=== PATIENT | male | born 1970 | race Caucasian/White ===

== ENCOUNTER 2020-12-11 10:07 | Emergency (ER) | payer MEDICAID ==
[~2020-12-11] VITALS: Ht 167.6 cm; Wt 97.7 kg
[2020-12-11 10:15] VITALS: Ht 167.6 cm; Wt 97.7 kg
[2020-12-11] MEDS ORDERED: METFORMIN (10:16)
[2020-12-11] MEDS ORDERED: BLOOD PRESSURE MED (10:16)
[2020-12-11] MEDS ORDERED: CHOLESTEROL MED (10:16)
[2020-12-11 11:06] LABS: HEMATOCRIT 53.3 % (42.0-54.0); MCH 30.6 pg (26.0-34.0); MCHC 33.8 g/dL (31.0-37.0); MCV 90.6 fL (80.0-100.0); MEAN PLATELET VOLUME 8.2 fL (7.4-10.4); PLATELET COUNT 327 10x3/uL (130-400); RBC 5.88 10x6/uL (4.20-6.10); RDW 13.7 % (11.5-14.5)
[2020-12-11 11:09] VITALS: BP 139/82
[2020-12-11 11:39] LABS: INR 1.11 (0.85-1.17); PROTIME 13.3 SECONDS (11.6-15.0)
[2020-12-11 11:47] LABS: CALC OSMOLALITY 274 mosm/kg (275-300); CALCIUM 8.9 mg/dL (8.5-10.1); CARBON DIOXIDE 23.8 mmol/L (21.0-32.0); CHLORIDE - SERUM 97 mmol/L (98-107); CREATININE - SERUM 0.8 mg/dL (0.6-1.3); GLUCOSE 365 mg/dL (74-106); POTASSIUM - SERUM 4.2 mmol/L (3.5-5.1); SODIUM 129 mmol/L (136-145); UREA NITROGEN 15 mg/dL (7-18); eGFR NON AFRICAN AMERICAN > 90 mL/min (90-120)
[2020-12-11 11:49] LABS: CHOLESTEROL, TOTAL 190 mg/dL (0-200); HDL CHOLESTEROL 27 mg/dL (32-96)
[2020-12-11 11:59] LABS: TRIGLYCERIDE 585 mg/dL (30-200)
[2020-12-11 12:03] LABS: ALBUMIN 3.4 g/dL (3.4-5.0); ALKALINE PHOSPHATASE 104 U/L (30-120); ALT (SGPT) 48 U/L (10-68); BILIRUBIN - TOTAL 0.38 mg/dL (0.2-1.3); CKMB 0.9 U/L (0.0-3.6); CREATINE KINASE 63 UL (21-232); MAGNESIUM - SERUM 1.6 mg/dL (1.8-2.4); PROTEIN - SERUM 7.3 g/dL (6.4-8.2); TROPONIN-I 0.018 ng/mL (0.000-0.060)
[2020-12-11] MEDS ORDERED: LIPITOR10 MG PO (14:04)
[2020-12-11 14:22] LABS: LYMPHOCYTES 28 % (15-50); MONOCYTES 7 % (2-11); NEUTROPHILS 64 % (40-80); PLATELET ESTIMATE NORMAL
== END 2020-12-11 14:39 | disposition home or self-care (01) ==
LOC: D.ER 10:07
PROVIDERS: Family Medicine
DX: H53.47 Heteronymous bilateral field defects (principal); I63.9 Cerebral infarction, unspecified; E11.9 Type 2 diabetes mellitus without complications; I10 Essential (primary) hypertension